=== PATIENT | female | born 1995 | race Two or more races ===

== ENCOUNTER 2017-06-14 20:49 | Emergency (ER) | payer SELFPAY ==
[~2017-06-14] VITALS: Ht 172.7 cm; Wt 90.7 kg
[2017-06-14 23:01] VITALS: BP 143/80
[2017-06-15] MEDS ORDERED: IBUPROFEN 400 MG TABLET ONE (04:23)
[2017-06-15] MEDS ORDERED: IBUPROFEN 400 MG TABLET PO ONE (04:30)
== END 2017-06-15 04:30 | disposition home or self-care (01) ==
LOC: ER 20:57
DX: M62.838 Other muscle spasm (principal); Z90.89 Acquired absence of other organs; V49.59XA Passenger injured in collision with other motor vehicles in traffic accident, initial encounter; Y93.89 Activity, other specified; Y92.413 State road as the place of occurrence of the external cause; Y99.8 Other external cause status
CPT/HCPCS: 99283; A4606; Z7610